=== PATIENT | female | born 2000 | race Caucasian/White ===

== ENCOUNTER 2024-03-03 01:59 | Outpatient (CLI) ==
[~2024-03-03] VITALS: Ht 160 cm; Wt 89.4 kg
[2024-03-03 02:13] VITALS: BP 127/66
[2024-03-03] MEDS ORDERED: PRENTAB9 PO (02:44)
[2024-03-03] MEDS ORDERED: HOME MED LIST COMPLETE! XX SCH (02:45)
== END 2024-03-03 04:20 | disposition home or self-care (01) ==
LOC: M LDO 01:59
PROVIDERS: ATTEND Obstetrics & Gynecology
DX: O47.1 False labor at or after 37 completed weeks of gestation (principal); Z3A.38 38 weeks gestation of pregnancy
CPT/HCPCS: 59025; G0463

== ENCOUNTER → 2024-11-16 | Outpatient (CLI) | payer OTHER ==
[~2024-11-16] MED LIST: PRENTAB9 PO
== END ==
LOC: M SLEEP HO 11:16
PROVIDERS: ATTEND Nurse Practitioner Adult Health
DX: G47.30 Sleep apnea, unspecified (principal); R51.9 Headache, unspecified